=== PATIENT | male | born 1985 | race African-American/Black ===

== ENCOUNTER 2024-05-13 00:13 | Emergency (ER) | payer MEDICAID ==
[~2024-05-13] VITALS: Ht 175.3 cm; Wt 85.0 kg
[2024-05-13 00:16] VITALS: BP 121/75; PULSE 79; RESP 22; TEMP 98.6; O2SAT 98
== END 2024-05-13 00:45 | disposition home or self-care (01) ==
LOC: ER 00:13
DX: T43.651A Poisoning by methamphetamines accidental (unintentional), initial encounter (principal); F20.9 Schizophrenia, unspecified; X58.XXXA Exposure to other specified factors, initial encounter
CPT/HCPCS: 99283